=== PATIENT | female | born 1985 | race American Indian/Alaskan Native ===

== ENCOUNTER 2018-11-21 11:04 | Emergency (ER) | payer MEDICAID ==
[2018-11-21 11:14] VITALS: BP 139/79
--- NOTE | 2018-11-21 11:17 | Emergency Department Report ---
- General Chief complaint: Wound/Laceration Stated complaint: SPIDER BITE Source: patient Mode of arrival: Ambulatory Limitations: No Limitations - History of Present Illness Initial comments: 33 y/o female comes in for what appears to be an insect bite on her left upper leg since yesterday. She reports that it is painful. She has no past medical history. complaint: insect bite/sting Onset/Timin -: days(s) Tetanus Up to Date: unsure Location: LLE Severity: moderate Quality: aching, sharp, constant Consistency: constant Worsens with: palpation, movement Associated symptoms: denies other symptoms Treatments Prior to Arrival: none - Related Data Previous Rx's Medication Instructions Recorded Last Taken Type Ibuprofen [Motrin 600 MG tab] 600 mg PO Q8H PRN #15 tablet 11/21/18 Unknown Rx cephALEXin [Keflex] 500 mg PO Q12HR #14 cap 11/21/18 Unknown Rx diphenhydrAMINE [Benadryl CAP] 25 mg PO Q8HR PRN #15 capsule 11/21/18 Unknown Rx Allergies Allergy/AdvReac Type Severity Reaction Status Date / Time hernandez Allergy Hives Verified 11/21/18 11:12 codeine Allergy Hives Verified 11/21/18 11:12 Abscess Boil HPI - HPI Chief Complaint: Wound/Laceration Stated Complaint: SPIDER BITE Home Medications: Previous Rx's Medication Instructions Recorded Last Taken Type Ibuprofen [Motrin 600 MG tab] 600 mg PO Q8H PRN #15 tablet 11/21/18 Unknown Rx cephALEXin [Keflex] 500 mg PO Q12HR #14 cap 11/21/18 Unknown Rx diphenhydrAMINE [Benadryl CAP] 25 mg PO Q8HR PRN #15 capsule 11/21/18 Unknown Rx Allergies/Adverse Reactions: Allergies Allergy/AdvReac Type Severity Reaction Status Date / Time hernandez Allergy Hives Verified 11/21/18 11:12 codeine Allergy Hives Verified 11/21/18 11:12 ED Review of Systems ROS: Stated complaint: SPIDER BITE Other details as noted in HPI Comment: All other systems reviewed and negative Constitutional: denies: chills, fever Skin: lesions ED Past Medical Hx - Medications Home Medications: Home Medications Medication Instructions Recorded Confirmed Last Taken Type Ibuprofen [Motrin 600 MG tab] 600 mg PO Q8H PRN #15 tablet 11/21/18 Unknown Rx cephALEXin [Keflex] 500 mg PO Q12HR #14 cap 11/21/18 Unknown Rx diphenhydrAMINE [Benadryl CAP] 25 mg PO Q8HR PRN #15 capsule 11/21/18 Unknown Rx ED Physical Exam - General Limitations: No Limitations General appearance: alert, in no apparent distress - Head Head exam: Present: atraumatic, normocephalic - Eye Eye exam: Present: normal appearance - ENT ENT exam: Present: mucous membranes moist - Neck Neck exam: Present: normal inspection - Neurological Exam Neurological exam: Present: alert, oriented X3 - Expanded Skin Exam Expanded Distribution of rash: LLE Description of rash: Present: tenderness, erythematous, swelling, blisters Critical care attestation.: If time is entered above; I have spent that time in minutes in the direct care of this critically ill patient, excluding procedure time. ED Disposition Clinical Impression: Insect bite Qualifiers: Encounter type: initial encounter Site of insect bite: thigh Laterality: left Qualified Code(s): S70.362A - Insect bite (nonvenomous), left thigh, initial encounter; W57.XXXA - Bitten or stung by nonvenomous insect and other nonvenomous arthropods, initial encounter Disposition: DC- TO HOME OR SELFCARE Is pt being admited?: No Does the pt Need Aspirin: No Condition: Stable Instructions: Insect Bite or Sting (ED) Additional Instructions: Complete antibiotics take pain medication and anti-itch medication as prescribed. Prescriptions: diphenhydrAMINE [Benadryl CAP] 25 mg PO Q8HR PRN #15 capsule PRN Reason: Itching cephALEXin [Keflex] 500 mg PO Q12HR #14 cap Ibuprofen [Motrin 600 MG tab] 600 mg PO Q8H PRN #15 tablet PRN Reason: Pain Referrals: [facility] [Provider Group] - 3-5 Days Forms: Work/School Release Form(ED)
== END 2018-11-21 12:18 | disposition home or self-care (01) ==
LOC: ED 11:04
DX: S70.362A Insect bite (nonvenomous), left thigh, initial encounter (principal); Z88.6 Allergy status to analgesic agent; Z79.899 Other long term (current) drug therapy; Z91.018 Allergy to other foods; W57.XXXA Bitten or stung by nonvenomous insect and other nonvenomous arthropods, initial encounter; Y93.89 Activity, other specified; Y92.89 Other specified places as the place of occurrence of the external cause; Y99.8 Other external cause status
CPT/HCPCS: 99282